=== PATIENT | female | born 1965 | race American Indian/Alaskan Native ===

== ENCOUNTER 2021-11-28 12:38 | Emergency (ER) | payer SELFPAY ==
[2021-11-28] MEDS ORDERED: KETOROLAC 30 MG/1 ML INJ IM ONE (16:24)
[2021-11-28] MEDS ORDERED: dexAMETHasone 20 MG/5 ML VIAL IM ONE (16:24)
[2021-11-28 18:01] LABS: Bilirubin,Urine NEG (Negative); Blood,Urine NEG (Negative); Color,Urine Yellow (Yellow); Protein,Urine <15 mg/dL mg/dL (Negative)
[2021-11-28 18:42] LABS: Mucus,Urine 3+ /HPF
[2021-11-28 18:51] LABS: HCG Qualitative,Urine Negative (Negative)
--- NOTE | 2021-11-28 19:04 | Emergency Department Report ---
ED Back Pain/Injury HPI - General Chief Complaint: Back Pain/Injury Stated Complaint: SEVERE BACK PAIN Time Seen by Provider: 11/28/21 16:25 Source: patient Limitations: No Limitations - History of Present Illness Initial Comments: 56-year-old black female presents to the emergency department for evaluation of 4-day history of worsening lower back pain. She denies injury, trauma, dysuria, fever, abdominal pain, and vaginal discharge. She states that pain has just been getting progressively worse unrelieved by Tylenol at home. MD Complaint: back pain -: Gradual, days(s) (4) Similar Symptoms Previously: No Place: home Severity: severe Severity scale (0 -10): 10 Quality: aching Consistency: constant Worsens With: movement, walking Associated Symptoms: denies: confusion, weakness, chest pain, numbness, difficulty walking, cough, difficulty urinating, diaphoresis, incontinence, fever/chills, constipation, headaches, abdominal pain, loss of appetite, malaise, nausea/vomiting, rash, seizure, shortness of breath, syncope Treatments Prior to Arrival: acetaminophen - Related Data Previous Rx's Medication Instructions Recorded Last Taken Type Cyclobenzaprine [Flexeril] 10 mg PO TID PRN #30 tab 11/28/21 Unknown Rx Lidocaine [Lidoderm] 1 each TP DAILY PRN #10 patch 11/28/21 Unknown Rx Naproxen [Naprosyn] 500 mg PO BID #14 tab 11/28/21 Unknown Rx Allergies Allergy/AdvReac Type Severity Reaction Status Date / Time shellfish derived Allergy Hives Verified 11/28/21 13:39 ED Review of Systems ROS: Stated complaint: SEVERE BACK PAIN Other details as noted in HPI Comment: All other systems reviewed and negative Constitutional: denies: chills, diaphoresis Respiratory: denies: shortness of breath Cardiovascular: denies: chest pain, palpitations Gastrointestinal: denies: abdominal pain, nausea, vomiting Genitourinary: denies: urgency, dysuria, frequency, hematuria, discharge Musculoskeletal: back pain Skin: denies: rash, lesions Neurological: denies: headache, weakness ED Past Medical Hx - Medications Home Medications: Home Medications Medication Instructions Recorded Confirmed Last Taken Type Cyclobenzaprine [Flexeril] 10 mg PO TID PRN #30 tab 11/28/21 Unknown Rx Lidocaine [Lidoderm] 1 each TP DAILY PRN #10 patch 11/28/21 Unknown Rx Naproxen [Naprosyn] 500 mg PO BID #14 tab 11/28/21 Unknown Rx ED Physical Exam - General Limitations: No Limitations General appearance: alert, in no apparent distress - Head Head exam: Present: atraumatic, normocephalic - Eye Eye exam: Present: normal appearance. Absent: scleral icterus, conjunctival injection, periorbital swelling, periorbital tenderness - ENT ENT exam: Present: normal exam - Neck Neck exam: Present: normal inspection, full ROM. Absent: tenderness, lymphadenopathy - Respiratory Respiratory exam: Absent: respiratory distress - Cardiovascular Cardiovascular Exam: Present: regular rate - GI/Abdominal GI/Abdominal exam: Present: soft. Absent: distended, tenderness, guarding, rebound - Extremities Exam Extremities exam: Present: normal inspection, normal capillary refill. Absent: pedal edema, joint swelling, calf tenderness - Back Exam Back exam: Present: normal inspection, tenderness. Absent: CVA tenderness (R), CVA tenderness (L), paraspinal tenderness, vertebral tenderness - Expanded Back Exam Expanded Back exam: Absent: saddle anesthesia Back exam: Negative Straight Leg Raising: Left, Right - Neurological Exam Neurological exam: Present: alert, oriented X3, CN II-XII intact, normal gait - Psychiatric Psychiatric exam: Present: normal affect, normal mood - Skin Skin exam: Present: warm, dry, intact, normal color ED Course Vital Signs 11/28/21 13:38 Temperature 98.5 F Pulse Rate 87 Respiratory 16 Rate Blood Pressure 130/76 [Right] O2 Sat by Pulse 99 Oximetry ED Medical Decision Making - Medical Decision Making 56-year-old black female presents to the emergency department for evaluation of 4-day history of worsening lower back pain. She denies injury, trauma, dysuria, fever, abdominal pain, and vaginal discharge. She states that pain has just been getting progressively worse unrelieved by Tylenol at home. Physical exam unremarkable. Urine negative for UTI. Symptoms improved significantly after medication. Patient be discharged home with naproxen, Flexeril, and Lidoderm patch to use as needed for pain. She is advised to take medications as prescribed and follow-up with her primary care provider or orthopedics if no improvement or worsening symptoms. She is advised to return to the emergency department as needed. She verbalizes understanding of and agreement with plan of care. Laboratory Results - last 24 hr 11/28/21 17:01 Urine Color Yellow Urine Turbidity Slightly-cloudy Urine pH 5.0 Ur Specific [place] 1.024 Urine Protein <15 mg/dl Urine Glucose (UA) Neg Urine Ketones Neg Urine Blood Neg Urine Nitrite Neg Urine Bilirubin Neg Urine Urobilinogen 4.0 Ur Leukocyte Esterase Neg Urine WBC (Auto) 3.0 Urine RBC (Auto) 15.0 U Epithel Cells (Auto) 46.0 H Urine Mucus 3+ Urine HCG, Qual Negative Critical care attestation.: If time is entered above; I have spent that time in minutes in the direct care of this critically ill patient, excluding procedure time. ED Disposition Clinical Impression: Back pain Qualifiers: Back pain location: low back pain Chronicity: acute Back pain laterality: left Sciatica presence: without sciatica Qualified Code(s): M54.50 - Low back pain, unspecified Disposition: HOME / SELF CARE / HOMELESS Is pt being admited?: No Does the pt Need Aspirin: No Condition: Stable Instructions: Acute Back Pain, Adult Additional Instructions: Take medications as prescribed. Follow-up with primary care provider if no improvement or worsening symptoms. Return to the emergency department as needed. Prescriptions: Cyclobenzaprine [Flexeril] 10 mg PO TID PRN #30 tab PRN Reason: Muscle Spasm Lidocaine [Lidoderm] 1 each TP DAILY PRN #10 patch PRN Reason: Pain, Moderate (4-6) Naproxen [Naprosyn] 500 mg PO BID #14 tab Referrals: REX FRANK MD [Staff Physician] - 3-5 Days Forms: Work/School Release Form(ED) Time of Disposition: 19:03
[2021-11-28 19:26] VITALS: BP 144/67
== END 2021-11-28 20:12 | disposition home or self-care (01) ==
LOC: ED 12:38
DX: M54.50 Low back pain, unspecified (principal); Z91.013 Allergy to seafood
CPT/HCPCS: 81001; 81025; 96372; 99283; J1100; J1885